=== PATIENT | female | born 1955 | race Caucasian/White ===

== ENCOUNTER 2018-04-07 19:58 | Emergency (ER) | payer SELFPAY ==
[2018-04-07 20:48] VITALS: BP 143/77; PULSE 59; TEMP 97.9; BMI 29.2
[2018-04-07] MEDS ORDERED: ONDANSETRON 4 MG/2 ML VIAL IVPUSH ONE (20:50)
[2018-04-07] MEDS ORDERED: MECLIZINE HCL 25 MG TABLET (FP) PO ONE (20:50)
--- NOTE | 2018-04-07 20:50 | PDOC ---
Rapid Medical Evaluation Medical Evaluation: I have performed a brief in-person evaluation of this patient. The patient presents with a chief complaint of: hx of gastritis, R ovarian removal, c/o peripheral vertigo around 1 hour along with an episode of emesis. denies cp, sob, headache, numbness/tingling/weakness of extremities; denies any cardiac problems Pertinent physical exam findings: +L beating nystagmus, does not change directions, negative HINTs exam I have ordered the following: Labs, EKG, Zofran, Meclizine The patient will proceed to the ED for further evaluation. 04/07/18 20:40
[2018-04-07 21:14] LABS: BASO % 0.3 % (0-2.0); HEMATOCRIT 36.2 % (32.4-45.2); HEMOGLOBIN 12.9 GM/dL (10.7-15.3); LYMPH % 25.4 % (8-40); MCH 34.8 pg (25.7-33.7); MCHC 35.8 g/dl (32.0-36.0); MEAN CELL VOLUME 97.2 fl (80-96); MONO % 7.1 % (3.8-10.2); NEUT % 66.2 % (42.8-82.8); PLATELET COUNT 208 K/MM3 (134-434); RBC 3.72 M/mm3 (3.60-5.2); WHITE BLOOD COUNT 4.9 K/mm3 (4.0-10.0)
[2018-04-07 21:34] LABS: ANION GAP 5 MMOL/L (8-16); BLOOD UREA NITROGEN 13 mg/dL (7-18); CALCIUM 8.4 mg/dL (8.5-10.1); CHLORIDE 108 mmol/L (98-107); CO2 26 mmol/L (21-32); CREATININE 0.6 mg/dL (0.55-1.3); GLUCOSE,RANDOM 116 mg/dL (74-106); POTASSIUM 3.6 mmol/L (3.5-5.1); SODIUM 140 mmol/L (136-145)
[2018-04-07 21:42] LABS: URINE APPEARANCE SLCLOUDY; URINE BILIRUBIN NEGATIVE (<2.0 mg/dL); URINE COLOR LTYELLOW; URINE GLUCOSE (UA) NEGATIVE (NEGATIVE); URINE KETONE TRACE (NEGATIVE); URINE LEUK ESTERASE NEGATIVE (NEGATIVE); URINE NITRITE NEGATIVE (NEGATIVE); URINE PROTEIN NEGATIVE (NEGATIVE); URINE UROBILINOGEN NEGATIVE mg/dL (0.2-1.0)
[2018-04-07] MEDS ORDERED: SODIUM CHLORIDE 1,000 ML IV STA (22:39)
[2018-04-07] MEDS ORDERED: MECLIZINE HCL 25 MG TABLET (FP) ONE (22:39)
--- NOTE | 2018-04-07 22:39 | PDOC ---
History of Present Illness - General Chief Complaint: Lightheaded Stated Complaint: DIZZINESS/VOMITING Time Seen by Provider: 04/07/18 22:12 History Source: Family (Daughter and son ) Exam Limitations: Clinical Condition, Language Barrier - History of Present Illness Initial Comments: 04/07/18 22:37 Patient is a 63 year old female with a PMHx of Gastritis who presented here with her daughter and son for worsening dizziness associated with nausea that started today around 1700. According to patients daughter, the dizziness and nausea worsens when she quickly moves her head and has a positional component. Patient denies similar symptoms in the past. States that the nausea and dizziness worsened this evening to the point she felt the room spinning and has been continuous since then, which prompted this hospital visit. She denies any tinnitus. Otherwise, patient denies any acute vision changes, headaches, loss of consciousness, vomiting, chest pain, palpitations, shortness of breath, dysuria , hematuria, urgency, hematochezia, hematemesis, melena. PCP: Dr. Kahn PMHx: Gastritis PSHx: Bilateral Oophorectomy Lumpectomy Social Hx: Denies alcohol use Denies drug use Denies any smoking Lives with daughter Homemaker Ambulates independently with no difficulty Very active and takes care of her grandchildren Past History - Past Medical History Allergies/Adverse Reactions: Allergies Allergy/AdvReac Type Severity Reaction Status Date / Time No Known Allergies Allergy Verified 04/07/18 20:45 Home Medications: Ambulatory Orders Metoclopramide HCl [Reglan -] 10 mg PO DAILY PRN #7 tablet 04/07/18 RX: Meclizine HCl [Antivert -] 12.5 mg PO TID PRN #21 tablet 04/07/18 COPD: No GI Disorders: Yes (GERD) - Suicide/Smoking/Psychosocial Hx Smoking History: Never smoked Have you smoked in the past 12 months: No Information on smoking cessation initiated: No Hx Alcohol Use: No Drug/Substance Use Hx: No Review of Systems - Review of Systems Constitutional: No: Chills, Diaphoresis, Fever HEENTM: No: Ear Pain, Hearing Loss, Throat Pain Respiratory: No: Cough, Orthopnea, Shortness of Breath, Wheezing, Productive cough, Hemoptysis Cardiac (ROS): No: Chest Pain, Edema, Lightheadedness, Palpitations, Syncope ABD/GI: Yes: Nausea. No: Abdominal Distended, Constipated, Diarrhea, Vomiting : No: Burning, Dysuria, Frequency, Flank Pain Musculoskeletal: No: Back Pain, Joint Pain Integumentary: No: Bruising, Erythema Neurological: Yes: Dizziness. No: Headache, Pre-Existing Deficit, Seizure, Tingling, Tremors, Weakness, Unsteady Gait Psychiatric: No: Anxiety, Depression Endocrine: No: Intolerance to Cold, Intolerance to Heat Hematologic/Lymphatic: No: Anemia, Easy Bleeding, Easy Bruising *Physical Exam - Vital Signs Last Vital Signs Temp Pulse Resp BP Pulse Ox 97.9 F 59 L 18 143/77 100 04/07/18 20:45 04/07/18 20:45 04/07/18 20:45 04/07/18 20:45 04/07/18 20:45 - Physical Exam General Appearance: Yes: Other (Awake, alert, oriented x3, eyes closed ) HEENT: positive: EOMI, [place], Other ((+) Nystagmus when looking to left ). negative: Tonsillar Exudate, Tonsillar Erythema Neck: positive: Supple. negative: Carotid bruit, Lymphadenopathy (R), Lymphadenopathy (L) Respiratory/Chest: positive: Lungs Clear, Normal Breath Sounds. negative: Crackles, Rales, Rhonchi, Stridor, Wheezing, Hyperresonant, Dullness Cardiovascular: positive: Regular Rhythm, Regular Rate, S1, S2. negative: Edema , JVD, Bradycardia, Tachycardia Gastrointestinal/Abdominal: positive: Other (Soft, nontender, nondistended, normoactive bowel sounds ) Musculoskeletal: positive: Normal Inspection. negative: CVA Tenderness, CVA Tenderness (R), CVA Tenderness (L) Extremity: positive: Normal Capillary Refill, Normal Inspection, Normal Range of Motion. negative: Tender, Pelvis Stable, Coldness, Pedal Edema, Swelling, Calf Tenderness, Erythema Integumentary: positive: Normal Color, Dry, Warm Neurologic: positive: food order delivery runner II-XII NML intact, Fully Oriented, Alert, Normal Mood/ Affect, Normal Response, Motor Strength 5/5. negative: Sensory Deficit, Confused, Disoriented Moderate Sedation - Procedure Monitoring Vital Signs: Procedure Monitoring Vital Signs Temperature 97.9 F 04/07/18 20:45 Pulse Rate 59 L 04/07/18 20:45 Respiratory Rate 18 04/07/18 20:45 Blood Pressure 143/77 04/07/18 20:45 O2 Sat by Pulse Oximetry (%) 100 04/07/18 20:45 ED Treatment Course - LABORATORY CBC & Chemistry Diagram: 04/07/18 21:03 04/07/18 21:03 - ADDITIONAL ORDERS Additional order review: Laboratory Results 04/07/18 12 21:18 21:03 Sodium 140 Potassium 3.6 Chloride 108 H Carbon Dioxide 26 Anion Gap 5 L BUN 13 Creatinine 0.6 Creat Clearance w eGFR > 60 Random Glucose 116 H Calcium 8.4 L Creatine Kinase 173 Creatine Kinase Index 0.8 CK-MB (CK-2) 1.4 Troponin I < 0.02 Urine Color Ltyellow Urine Appearance Slcloudy Urine pH 6.0 Ur Specific [place] 1.016 Urine Protein Negative Urine Glucose (UA) Negative Urine Ketones Trace H Urine Blood Negative Urine Nitrite Negative Urine Bilirubin Negative Urine Urobilinogen Negative Ur Leukocyte Esterase Negative 04/07/18 21:03 RBC 3.72 MCV 97.2 H MCHC 35.8 RDW 13.0 MPV 7.0 L Neutrophils % 66.2 Lymphocytes % 25.4 Monocytes % 7.1 Eosinophils % 1.0 Basophils % 0.3 Medical Decision Making - Medical Decision Making 04/07/18 23:03 Patient is a 63 year old female with a PMHx of Gastritits who presented to the ED complaining of dizziness associated with nausea and feels as if the room is spinning. Patient reports it was sudden and she never experienced this before. States it's positional and when she moves her head quickly. Patient found to have nystagmus bilaterally. Differential Diagnosis includes, but not limited to BPPV, Vestibular Neuritis, -10mg Reglan IVPB given -Meclizine 25mg PO given -1L IV NS given -Patient states feeling better after medications -Will likely discharge home 04/07/18 23:37 -Patient reports feeling much better now and is able to open her eyes and ambulate -Will discharge home with a prescription for Antiemetics and Antihistamines -Recommended patient follow up with PCP within one week *DC/Admit/Observation/Transfer Diagnosis at time of Disposition: Vertigo - Discharge Dispostion Disposition: HOME Condition at time of disposition: Stable Decision to Admit order: No - Prescriptions Prescriptions: RX: Meclizine HCl [Antivert -] 12.5 mg PO TID PRN #21 tablet PRN Reason: Vertigo Metoclopramide HCl [Reglan -] 10 mg PO DAILY PRN #7 tablet PRN Reason: Nausea And/Or Vomiting - Referrals Referrals: Owen Kahn MD [Primary Care Provider] - - Patient Instructions Printed Discharge Instructions: Vertigo, Benign Paroxysmal Positional Vertigo, DI for Vertigo Additional Instructions: -You were found to have Vertigo -A prescription for Meclizine and Reglan was sent to your pharmacy. Please pick it up -Please follow up with your primary care doctor within a week -Please drink plenty of water as she was found to be dehydrated, which may worsen the vertigo -If you continue to have worsening dizziness or any acute vision changes, severe headaches, loss of consciousness, please return to the Emergency Department immediately. - Post Discharge Activity
[2018-04-07] MEDS ORDERED: METOCLOPRAMIDE HCL INJECTION 10 MG/2 ML VIAL IVPUSH ONE (22:40)
[2018-04-07] MEDS ORDERED: METOCLOPRAMIDE HCL INJECTION 10 MG/2 ML VIAL ONE (22:40)
[2018-04-07] MEDS ORDERED: METOCLOPRAMIDE HCL INJECTION 10 MG/2 ML VIAL IVPB ONE (22:41)
--- NOTE | 2018-04-07 22:59 | PDOC ---
Attending Attestation - HPI HPI: 04/07/18 23:10 Patient is a 63 year old female with a significant past medical history of Gastritis who presented to the ED, accompanied by daughter and son, for worsening dizziness and nausea that started today. According to patients daughter, the patient reports dizziness and nausea that is worsened when she quickly moves her head and has a positional component. She states she had an episode earlier today that felt like the room spinning and has been continuous since then. Patient denies similar symptoms in the past. Patient denies any acute vision changes, headaches, loss of consciousness, vomiting, chest pain, palpitations, shortness of breath, dysuria, hematuria, urgency, hematochezia, hematemesis, melena. PCP: Dr. Kahn Past surgical hx: Bilateral Oophorectomy, Lumpectomy - Physicial Exam PE: 04/07/18 23:10 Constitutional: Awake, alert, oriented. No acute distress. Head: Normocephalic. Atraumatic Eyes: + left sided nystagmus. PERRL. Conjunctivae are not pale. ENT: Mucous membranes are moist and intact. Posterior pharynx without exudates or erythema. Uvula midline. Neck: Supple. Full ROM. No lymphadenopathy. Cardiovascular: Regular rate. Regular rhythm. S1, S2 regular. Distal pulses are 2+ and symmetric. Pulmonary/Chest: No evidence of respiratory distress. Clear to auscultation bilaterally No wheezing, rales or rhonchi. Abdominal: Soft and non-distended. There is no tenderness. No rebound, guarding or rigidity. No organomegaly. No palpable masses. Good bowel sounds. Back: No CVA tenderness. Musculoskeletal: No edema. No cyanosis. No clubbing. Full range of motion in all extremities. Nocalf tenderness. Radial/pedal pulses are intact and 2+ bilaterally Skin: Skin is warm and dry. No petechiae. No purpura. Neurological: Alert and oriented to person, place, and time. Cranial nerves II -XII are grossly intact. Normal speech. Strength is grossly symmetric. No sensory deficits. Psychiatric: Good eye contact. Normal interaction, affect and behavior. <Graciela Richardson - Last Filed: 04/07/18 23:10> - Resident Resident Name: Gaviota Govea - ED Attending Attestation I have performed the following: I have examined & evaluated the patient, The case was reviewed & discussed with the resident, I agree w/resident's findings & plan, Exceptions are as noted - Medical Decision Making 04/07/18 22:59 I, Dr. Verónica Gonzalez DO, attest that this document has been prepared under my direction and personally reviewed by me in its entirety. I further attest, that it accurately reflects all work, treatment, procedures and medical decision -making performed by me. 04/07/18 23:11 a/p: 63yo female with vertigo and nausea today -consistent with peripheral vertigo -horizontal nystagmus on exam -will cehck labs, neuro intact, no head ct indicated at this time -will medicate -will reassess 04/07/18 23:51 pt ambulating with a steady gait will po challenge feels better no longer with vertigo feeling or nausea 04/08/18 00:21 pt tolerated po ambulated in the ED <Verónica Gonzalez - Last Filed: 04/08/18 00:21> Attestations - Attestations 04/07/18 23:11 Documentation prepared by Graciela Richardson, acting as medical coordinator pesticide use for Verónica Gonzalez DO <Graciela Richardson - Last Filed: 04/07/18 23:10>
--- NOTE | 2018-04-08 11:26 | EKG ---
Test Reason : Blood Pressure : / mmHG Vent. Rate : 055 BPM Atrial Rate : 055 BPM P-R Int : 160 ms QRS Dur : 086 ms QT Int : 450 ms P-R-T Axes : 053 000 011 degrees QTc Int : 430 ms SINUS BRADYCARDIA WITH MARKED SINUS ARRHYTHMIA CANNOT RULE OUT ANTERIOR INFARCT , AGE UNDETERMINED ABNORMAL ECG NO PREVIOUS ECGS AVAILABLE Confirmed by JUAN RIVERA MD ([id number]) on 04/08/2018 11:26:13 AM Referred By: Confirmed By:JUAN RIVERA MD
== END 2018-04-08 00:22 | disposition home or self-care (01) ==
LOC: JER 19:58
PROC: 3E033GC Introduction of Other Therapeutic Substance into Peripheral Vein, Percutaneous Approach (ICD-10-PCS; principal; 2018-04-07)
DX: R42 Dizziness and giddiness (principal)
CPT/HCPCS: 36415; 80048; 81003; 82550; 82553; 84484; 85025; 93005; 93010; 99282-25; J7030

== ENCOUNTER 2021-09-08 14:47 | Observation (INO) | payer OTHER ==
[2021-09-08] MEDS ORDERED: MECLIZINE HCL 25 MG TABLET (FP) PO ONE (19:44)
[2021-09-08] MEDS ORDERED: MECLIZINE HCL 25 MG TABLET (FP) ONE (20:07)
[2021-09-08 20:18] LABS: BASO % 0.4 % (0-2.0); HEMATOCRIT 35.2 % (32.4-45.2); HEMOGLOBIN 11.7 GM/dL (10.7-15.3); INR 1.06 (0.83-1.09); LYMPH % 28.6 % (8-40); MCHC 33.2 g/dl (32.0-36.0); MEAN CELL VOLUME 93.5 fl (80-96); MEAN PLT VOLUME 6.7 fl (7.5-11.1); MONO % 8.8 % (3.8-10.2); NEUT % 62.2 % (42.8-82.8); PLATELET COUNT 225 10^3/uL (134-434); PROTHROMBIN TIME (PATIENT) 12.2 SEC (9.7-13.0); RBC 3.77 M/mm3 (3.60-5.2); RDW 14.1 % (11.6-15.6); WHITE BLOOD COUNT 3.8 K/mm3 (4.0-10.0)
[2021-09-08 20:31] LABS: ALBUMIN 3.7 g/dl (3.4-5.0); CALCIUM 9.1 mg/dL (8.5-10.1)
[2021-09-08 20:32] LABS: BLOOD UREA NITROGEN 6.9 mg/dL (7-18); MAGNESIUM 2.2 mg/dL (1.8-2.4)
[2021-09-08 20:35] LABS: CREATININE 0.5 mg/dL (0.55-1.3)
[2021-09-08 20:36] LABS: BILIRUBIN,TOTAL 0.5 mg/dL (0.2-1); TOT PROT 7.7 g/dl (6.4-8.2)
[2021-09-09] MEDS ORDERED: MECLIZINE HCL 25 MG TABLET (FP) PO PRN (00:42)
[2021-09-09 01:30] LABS: PH,URINE 6.5 (5.0-8.0); URINE APPEARANCE CLEAR; URINE BILIRUBIN NEGATIVE (NEGATIVE); URINE COLOR YELLOW; URINE GLUCOSE (UA) NEGATIVE (NEGATIVE); URINE KETONE NEGATIVE (NEGATIVE); URINE LEUK ESTERASE NEGATIVE (NEGATIVE); URINE NITRITE NEGATIVE (NEGATIVE); URINE PROTEIN NEGATIVE (NEGATIVE); URINE UROBILINOGEN 0.2 mg/dL (0.2-1.0)
[2021-09-09 01:39] LABS: EPI CELLS 7 /uL (0-25.1); HYALINE CASTS 1 /uL (0-3.1); URINE BACTERIA 10 /uL (0-1359); URINE RBC 10 /uL (0-23.9); URINE WBC 2 /uL (0-25.8)
[2021-09-09 03:08] VITALS: BMI 25.2
[2021-09-09] MEDS: MECLIZINE HCL 25 MG TABLET (FP) PO SCH ×2 (06:33→13:02)
[2021-09-09] MEDS ORDERED: ENOXAPARIN NA (PORCINE) 40 MG/0.4 ML DISP.SYRIN SQ SCH (10:00)
[2021-09-09 10:09] VITALS: BP 127/78; PULSE 61; TEMP 97.7
[2021-09-09 10:10] LABS: BASO % 0.4 % (0-2.0); EOS % 2.7 % (0-4.5); HEMATOCRIT 34.3 % (32.4-45.2); HEMOGLOBIN 11.7 GM/dL (10.7-15.3); LYMPH % 39.2 % (8-40); MCH 31.7 pg (25.7-33.7); MEAN CELL VOLUME 93.1 fl (80-96); MEAN PLT VOLUME 6.9 fl (7.5-11.1); MONO % 11.4 % (3.8-10.2); NEUT % 46.3 % (42.8-82.8); PLATELET COUNT 218 10^3/uL (134-434); RBC 3.68 M/mm3 (3.60-5.2); RDW 14.4 % (11.6-15.6); WHITE BLOOD COUNT 3.6 K/mm3 (4.0-10.0)
[2021-09-09 10:31] LABS: BILIRUBIN,TOTAL 0.7 mg/dL (0.2-1)
[2021-09-09 10:32] LABS: TOT PROT 7.3 g/dl (6.4-8.2)
[2021-09-09 10:33] LABS: CALCIUM 9.1 mg/dL (8.5-10.1); CREATININE 0.5 mg/dL (0.55-1.3)
[2021-09-09 10:34] LABS: ALBUMIN 3.5 g/dl (3.4-5.0); BLOOD UREA NITROGEN 12.8 mg/dL (7-18); MAGNESIUM 2.3 mg/dL (1.8-2.4)
[2021-09-09 10:35] LABS: PHOSPHOROUS 3.6 mg/dL (2.5-4.9)
== END 2021-09-09 13:36 | disposition home health service (06) ==
LOC: JER 14:47 → INTOOBSV 20:06 → JERBED 20:06 → J6S 09-09 02:03
PROVIDERS: ADMIT Internal Medicine; ATTEND Internal Medicine
PROC: 3E023GC Introduction of Other Therapeutic Substance into Muscle, Percutaneous Approach (ICD-10-PCS; principal; 2021-09-08)
PROC: 3E023GC Introduction of Other Therapeutic Substance into Muscle, Percutaneous Approach (ICD-10-PCS; 2021-09-08)
DX: R42 Dizziness and giddiness (principal); R11.0 Nausea; K21.9 Gastro-esophageal reflux disease without esophagitis; F17.210 Nicotine dependence, cigarettes, uncomplicated
CPT/HCPCS: 36415; 70450-TC; 71046-TC-FY; 80053; 80061; 81003; 83735; 84100; 84443; 84484; 85025; 85610; 85730; 93005; 93010; 96372; 99285-25; C9803-CS; G0378; U0003; U0005